=== PATIENT | male | born 1960 | race Caucasian/White ===

== ENCOUNTER 2021-09-30 10:38 | Outpatient (CLI) | payer OTHER, SELFPAY | END 2021-09-30 10:39 | disposition home or self-care (01) | LOC: RAD 10:39 | PROVIDERS: Visit Provider Internal Medicine | DX: L40.9 Psoriasis, unspecified (principal); M79.10 Myalgia, unspecified site; M19.071 Primary osteoarthritis, right ankle and foot; R52 Pain, unspecified | CPT/HCPCS: 72202; 73120; 73600; 80053; 82533; 82550; 84100; 84182; 84403; 84443; 85025; 86140; 86160; 86162; 86200; 86235; 86255; 86331; 86376; 86431; 86606; 86609; 86704; 86803; 87340 ==

== ENCOUNTER 2021-10-07 08:41 | Oncology outpatient (recurring) (ONCR) | payer OTHER, SELFPAY ==
[2021-10-07 10:49] LABS: Basophils % 0.7 %; Eosinophils # 0.1 10^3/uL (0.0-0.8); Eosinophils % 0.9 %; Hematocrit 40.3 % (42.0-52.0); Hemoglobin 13.8 g/dL (11.7-16.6); Lymphocytes # 1.5 10^3/uL (0.8-4.8); Lymphocytes % 26.6 %; Mean Corpuscular HGB Conc 34.2 g/dL (30.0-36.0); Mean Corpuscular Hemoglobin 28.9 pg (28.0-34.0); Mean Corpuscular Volume 84.5 fl (80-94); Mean Platelet Volume 11.5 fL (7.4-10.4); Monocytes # 0.8 10^3/uL (0.2-0.9); Monocytes % 14.1 %; Neutrophils # 3.13 10^3/uL (1.8-7.7); Neutrophils % 57.5 %; Nucleated Red Blood Cells % 0 %; Red Blood Count 4.77 10^6/uL (4.1-5.3); Red Cell Distribution Width 13.5 % (12.1-15.1); White Blood Count 5.5 10^3/uL (4.0-10.0)
[2021-10-07 11:34] LABS: Slide Review Slide Review Perform
[2021-10-07 11:35] LABS: Platelet Count 180 10^3/cmm (130-400)
[2021-10-07 13:00] LABS: LAB Peripheral Smear Sent for Review
== END 2021-10-20 23:59 | disposition home or self-care (01) ==
PROVIDERS: Visit Provider Internal Medicine Hematology & Oncology
DX: D69.6 Thrombocytopenia, unspecified (principal)
CPT/HCPCS: 80503; 85025

== ENCOUNTER 2021-11-11 09:04 | Oncology outpatient (recurring) (ONCR) | payer OTHER, SELFPAY ==
[2021-11-11 09:52] LABS: Basophils % 0.4 %; Eosinophils # 0.1 10^3/uL (0.0-0.8); Eosinophils % 1.1 %; Hematocrit 44.2 % (42.0-52.0); Hemoglobin 15.4 g/dL (11.7-16.6); Lymphocytes # 1.5 10^3/uL (0.8-4.8); Lymphocytes % 17.5 %; Mean Corpuscular HGB Conc 34.8 g/dL (30.0-36.0); Mean Corpuscular Volume 83.2 fl (80-94); Mean Platelet Volume 10.3 fL (7.4-10.4); Monocytes # 0.8 10^3/uL (0.2-0.9); Monocytes % 9.7 %; Neutrophils % 71.1 %; Nucleated Red Blood Cells % 0 %; Red Blood Count 5.31 10^6/uL (4.1-5.3); Red Cell Distribution Width 13.6 % (12.1-15.1); White Blood Count 8.3 10^3/uL (4.0-10.0)
[2021-11-11 10:09] LABS: Alanine Aminotransferase 25 U/L (0-41); Albumin Level 4.4 g/dL (3.5-5.2); Alkaline Phosphatase 70 IU/L (40-130); Anion Gap 14.3 (5-19); Aspartate Amino Transferase 15 U/L (0-40); Blood Urea Nitrogen 22 mg/dL (8-23); Carbon Dioxide 24 mmol/L (22-29); Chloride 98 mmol/L (98-107); Globulin 3.6 g/dL (1.3-4.6); Glomerular Filtration Rate 136.5 mL/min (90-130); Glucose 105 mg/dL (65-115); Osmolality Calculated 278 mOsm/kg (285-295); Potassium 4.3 mmol/L (3.5-5.1); Sodium 132 mmol/L (136-145); Total Bilirubin 0.4 mg/dL (0.15-1.2)
[2021-11-11 11:14] LABS: Platelet Count 146 10^3/cmm (130-400); Slide Review Slide Review Perform
[2021-11-20 13:52] LABS: Erythrocyte Sedimentation Rate 68 mm/hr (0-10)
== END 2021-11-19 23:59 | disposition home or self-care (01) ==
PROVIDERS: Internal Medicine; Visit Provider Internal Medicine Hematology & Oncology
DX: M25.50 Pain in unspecified joint (principal); M79.10 Myalgia, unspecified site; D69.6 Thrombocytopenia, unspecified
CPT/HCPCS: 36415; 80053; 85025; 85651; 86140

== ENCOUNTER → 2022-02-24 14:29 | Outpatient (BNVA) | payer OTHER, SELFPAY | PROVIDERS: PCP Student in an Organized Health Care Education/Training Program; Visit Provider Internal Medicine | DX: M25.50 Pain in unspecified joint (principal); D69.6 Thrombocytopenia, unspecified; M05.9 Rheumatoid arthritis with rheumatoid factor, unspecified | CPT/HCPCS: 36415; 80053; 82550; 85025; 85651; 86140 ==